=== PATIENT | female | born 1945 | race Caucasian/White ===

== ENCOUNTER 2016-05-07 21:31 | Emergency (ER) | payer MEDICARE, OTHER ==
[~2016-05-07] VITALS: Ht 149.9 cm; Wt 50.0 kg
[2016-05-07 21:42] VITALS: BP 118/76; PULSE 76; RESP 16; O2SAT 98
--- NOTE | 2016-05-07 23:39 | ED.REPORT ---
HPI-Hand Prob/Inj Date of Service May 07, 2016 ED Provider: Osmani Galdamez MD Pt is a 71 y.o. female who presents to the ED c/o left hand pain and swelling onset last night. Pt states that she was bit by a cat last night. She denies fever. Nursing Notes Stated Complaint: CAT BITE Chief Complaint: Skin Rash/Abscess Nursing Notes Reviewed: Yes Allergies: Uncoded Allergies: SULFA (Adverse Reaction, Intermediate, 05/07/16) headache General Time Seen by Provider: 23:34 Chief Complaint Hand pain left, Hand swelling left Hx Obtained From: Patient Arrived By: Walk-in Onset Occurred: Yesterday Symptom Duration: Since onset Caused by: Bite injury (Cat) Recent Healthcare: No recent doctor visit, No recent hospitalization Past Medical History Past Medical History None reported Past Surgical History None reported Ambulatory Status Independent Review of Systems Constitutional: Denies: Fever Musculoskeletal: Reports: Extremity pain (Left hand), Extremity swelling (Left hand) Complete sys rev & neg: except as marked. Physical Exam Initial Vital Signs Vital Signs (First) Date Time Temp Pulse Resp B/P Pulse Ox O2 Delivery O2 Flow Rate FiO2 05/07/16 21:42 36.1 76 16 118/76 98 Room Air Initial VS: Reviewed, Vital signs normal Head / Eyes: Atraumatic, Normocephalic Respiratory: Breath sounds normal, Clear to auscultation, No respiratory distress Cardiovascular: Regular rate & rhythm, Heart sounds normal, Intact distal pulses Extremities: Vascular intact, Neuro intact Skin: Warm, Dry, No cyanosis Neurologic: Alert, Oriented, Nonfocal Psychiatric: Mood/affect normal, Behavior normal, Normal thought content Wrist / Hand: Neurologic intact, Vascular intact Left Hand: Positive: Erythema present, Swelling present... Trauma / Burn / Environmental: Positive: Bite injury (dors), Puncture wound Bite injury to dorsum of left hand and thumb, with surrounding swelling and erythema. Lympanhgitic spread from left hand up to left elbow, no adenopathy. General/Constitutional: Awake, Alert, No acute distress, Well appearing, Well developed, Well hydrated, Well nourished, Not toxic appearing Re-Eval/Medical Decision Med Decision/Clinical Course 71-year-old female with cellulitis associated with a cat bite of the hand. She was treated with IV Unasyn and will be discharged on by mouth Augmentin with close follow-up. Source of Hx: Old records Re-Evaluation/Progress : Time of Eval: 00:56 Re-Evaluation/Progress Note: Pt rechecked. Discussed plan for discharge, pt understands and agrees with plan. Counseled Regarding: Diagnosis, Lab results, Need for follow-up, When/why to return to ED Discharge & Departure Primary Impression: Infected cat bite of hand Encounter type: initial encounter Laterality: left Qualified Code: S61.452A - Open bite of left hand, initial encounter Disposition: Home Discharge Condition All VS Reviewed: Yes Condition: Stable Patient Instructions: Animal Bite (ED), Cellulitis (ED) Additional Instructions: Compresses frequently. You received Unasyn IV antibiotic to be followed by Augmentin 875 mg orally twice daily, #20 dispensed. Tylenol and/or ibuprofen as needed for pain. Recheck in the next 1-2 days with your primary doctor. Call me at [phone] between the hours of 9 PM and 6 AM the next 2 nights if you have any problems. Referrals: Regulo Worley MD (PCP) Scribe Attestation Portions of this note were transcribed by Juantia Craven. I, Dr. Galdamez personally performed the history, physical exam and medical decision-making; I reviewed and confirmed the accuracy of the information in the transcribed note. Signed by: Pooja Worley, 05/07/16 and 0107. copies to: eRgulo Worley MD, Howard L MD May 07, 2016 23:39 JUANITA CRAVEN May 07, 2016 23:48
[2016-05-07] MEDS ORDERED: Ampicillin-Sulbactam Inj 3,000 MG in 0.9% Sodium Chloride 100 ML IV ONE (23:45)
[2016-05-08 01:16] VITALS: BP 112/72; PULSE 76; RESP 16; O2SAT 100
[2016-05-08] MEDS ORDERED: _Amoxicillin-Clavulanate 875-125 mg Tablet PO SCH (08:30)
== END 2016-05-08 01:18 | disposition home or self-care (01) ==
LOC: SED 21:31
DX: S61.452A Open bite of left hand, initial encounter (principal); W55.01XA Bitten by cat, initial encounter; Y92.9 Unspecified place or not applicable; Y93.89 Activity, other specified; Y99.8 Other external cause status; L03.114 Cellulitis of left upper limb; Z88.2 Allergy status to sulfonamides
CPT/HCPCS: 96365; 99284; J0295

== ENCOUNTER 2016-07-07 05:39 | Emergency (ER) | payer MEDICARE, OTHER ==
[~2016-07-07] VITALS: Ht 147.3 cm; Wt 50.0 kg
[2016-07-07 05:41] VITALS: BP 127/61; PULSE 107; RESP 16; O2SAT 100
[2016-07-07] MEDS ORDERED: NABU500T PO (05:51)
[2016-07-07] MEDS ORDERED: MULT1CAP33 PO (05:51)
[2016-07-07] MEDS ORDERED: CYAN1TAB42 PO (05:51)
--- NOTE | 2016-07-07 06:11 | ED.REPORT ---
HPI-General Illness Date of Service Jul 07, 2016 ED Provider: Luis Desir MD Patient is a 71 year old female with a history of pseudogout (last episode 10 yrs ago) who presents to the ED complaining of joint pain onset 4 days ago. Associated symptoms include R ankle, R knee, back pain (L side with radiation to buttocks), and R knee swelling (onset 3 days ago s/p a fall out of the car). Her pain started in her knee and moved to her ankle and back. She has also had some tingling in her R toes and fingers onset a few hours ago. She denies numbness, weakness, redness, fever, or any other symptoms. She has been seen at [facility] several times recently for similar complaints and has had X-rays performed. She has been taking Tylenol and Tramadol to help manage her pain. She was given Ambutol from [facility] Nursing Notes Stated Complaint: BACK PAIN Chief Complaint: Extremity Trauma Nursing Notes Reviewed: Yes ([employer], [employer] reconciled) Allergies: Coded Allergies: hydrocodone (Verified Allergy, Intermediate, dizziness, nausea, 07/07/16) Sulfa (Sulfonamide Antibiotics) (Verified Allergy, Unknown, 07/07/16) codeine (Verified Adverse Reaction, Severe, nausea, 07/07/16) oxycodone (Verified Adverse Reaction, Intermediate, dizziness, nausea, ) Scheduled Colchicine (Colchicine) 0.6 Mg Tablet 0.6 MG PO BID Cyanocobalamin/Folic Acid (Vitamin O73-Zcyag Acid Tablet) 1 Each Tablet 1 EACH PO DAILY Multivitamin (Multivitamins) 1 Each Capsule 1 EACH PO DAILY Nabumetone (Nabumetone) 500 Mg Tablet 500 MG PO BID Prednisone (PredniSONE) 20 Mg Tablet 60 MG PO DAILY Scheduled PRN Ibuprofen (Ibuprofen) 600 Mg Tablet 600 MG PO TID PRN PRN For Pain Ondansetron ODT (Ondansetron ODT) 8 Mg Tab.rapdis 8 MG PO Q4H PRN PRN For Nausea Tramadol (Tramadol) 50 Mg Tablet 50-100 MG PO Q6H PRN PRN For Pain General Time Seen by : 06:06 Chief Complaint Other (Joint pain) Hx Obtained From: Patient Arrived By: Walk-in Sudden in Onset?: Yes Onset Occurred: 4 days ago Symptom Duration: Since onset Recent Healthcare: Recent doctor visit Similar Sx Previous: Yes Past Medical History Past Medical History Pseudogout Past Surgical History None reported Smoking History Never Smoker Social History Alcohol Use: "Social" Other Social History: Good social support, Ambulatory Status Independent Review of Systems +tingling in R toes and fingers Full Review of Systems Constitutional: Denies: Chills, Fever Musculoskeletal: Reports: Back pain, Joint pain, Joint swelling (R knee) Neurologic: Denies: Numbness, Weakness Complete sys rev & neg: except as marked. Physical Exam Vital Signs Vital Signs Date Time Temp Pulse Resp B/P Pulse Ox O2 Delivery O2 Flow Rate FiO2 07/07/16 08:26 94 12 137/63 100 07/07/16 05:41 36.6 107 16 127/61 100 Room Air Initial VS: Reviewed, Vital signs abnormal (HR ) Head / Eyes: Atraumatic, Normocephalic Neck: Full range of motion Skin: Warm, Dry Neurologic: Alert, Oriented, Nonfocal Psychiatric: Mood/affect normal, Behavior normal, Normal thought content General/Constitutional: Awake, Alert, No acute distress, Well developed, Not toxic appearing Uncomfortable Respiratory / Chest: Atraumatic, Breath sounds NL, Breath sounds = bilat, No respiratory distress Cardiovascular: Heart rate NL, Regular rhythm, Heart sounds NL Abdomen: Soft, Non-tender Right Knee: Positive: Swelling present... Able to internally and externally roate hip. Decreased ROM in knee with effusion. Warm but not hot. Ligament testing limited due to discomfort. Ankle / Foot: No swelling, Neurologic intact, Vascular intact No redness or effusion in R ankle Interpretation & Diagnostics Lab Results Interpretation Result Diagram: 07/07/16 0640 07/07/16 0640 Test 07/07/16 06:40 07/07/16 07:29 White Blood Count 16.9th/mm3 (3.8-10.1) Red Blood Count 4.50mil/mm3 (3.90-5.20) Hemoglobin 13.6g/dL (12.0-15.6) Hematocrit 40.0% (35.0-46.0) Mean Corpuscular Volume 88.9fL (81-100) Mean Corpuscular Hemoglobin 30.2pg (27.0-35.0) Mean Corpuscular Hemoglobin Concent 34.0% (32.0-37.0) Red Cell Distribution Width 13.9% (12.3-15.4) Platelet Count 298bil/L (150-400) Neutrophils (%) (Auto) 78.9% (40-74) Lymphocytes (%) (Auto) 6.6% (14-46) Monocytes (%) (Auto) 13.9% (4-12) Eosinophils (%) (Auto) 0.1% (0-5) Basophils (%) (Auto) 0.1% (0-3) Erythrocyte Sedimentation Rate 25mm/hr (0-40) Hold Blue Top Tube Received (Received) Sodium Level 135mEq/L (134-144) Potassium Level 3.7mEq/L (3.5-5.2) Chloride Level 97mEq/L (97-108) Carbon Dioxide Level 19mmol/L (18-29) Blood Urea Nitrogen 13mg/dL (8-27) Creatinine 0.55mg/dL (0.57-1.00) Estimat Glomerular Filtration Rate 156mL/min (>59) Glucose Level 109mg/dL (60-99) Calcium Level 9.4mg/dL (8.5-10.1) Total Bilirubin 1.9mg/dL (0.0-1.2) Aspartate Amino Transf (AST/SGOT) 23U/L (0-50) Alanine Aminotransferase (ALT/SGPT) 17U/L (0-32) Alkaline Phosphatase 84U/L (25-165) Total Protein 7.3g/dL (6.4-8.4) Albumin 3.8g/dL (3.4-5.0) Hold Pritchett Top Tube Received (Received) Body Fluid Source Synovial fluid Body Fluid Color Yellow (Clear) Body Fluid Appearance Cloudy Body Fluid WBC 72291/mm3 Body Fluid RBC 2525/mm3 Body Fluid Polynuclear WBCs 90% Body Fluid Lymphocytes 5% Body Fluid Monocytes 5% Body Fluid Eosinophils 0% Body Fluid Basophils 0% Lab Results Interpretation: CBC positive leukocytosis CMP normal Synovial fluid analysis positive monosodium urate crystals consistent with gout, Gram stain negative, inflammatory markers, culture pending X-Ray Interpretation Xray Interpretation: IMPRESSION: No displaced fracture seen. If there is continued pain, followup exam or additional imaging such as MRI or CT could be performed for further assessment. Dictated by: Jimmy Covarrubias RRA Interpreted: Shannon Liang MD on 07/07/2016 at 8:47 Transcribed by: CALLUM on 07/07/2016 at 8:47 Study Performed: 3 views X-Ray Ordered: Ankle right Interpretation / Wet Read by: Interpret - Radiologist Procedures Arthrocentesis Right knee Time: 06:48 Aspiration Performed by: ED physician Consent / Setup / Site Prep: Informed consent provided, Consent from patient, Time-out performed, Hand hygiene observed Indication: Gout evaluation Skin Preparation Agent: Hibiclens - Chlorhexidine Local Anesthesia: Bupivacaine 0.5% Joint Aspirated: Knee right Amount Aspirated: 15 ml Fluid Appearance: Cloudy, Straw colored Post-Procedure / Complications: Antibiotic oint applied, Dressing placed, No complications, Condition improved, Tolerated procedure well, Patient stable Re-Eval/Medical Decision Med Decision/Clinical Course This is a 71-year-old female presents with several days of increasing right knee and right ankle pain, she reports minor trauma getting out of a vehicle but did not actual fall or suffer major trauma, reports being seen at urgent care in [place] where she had x-rays were negative for fracture by report, rales increasing discomfort. She is also notes some swelling in the right knee. She has had no fever. She is worried about pseudogout that she reports she has had pseudogout in the past. She denies alcohol ingestion. She has had no fever or redness. He has numerous drug sensitivities-vertically nausea and dizziness with pain medicine, and only tolerates tramadol. She has had increasing pain it has been uncontrolled and that is what brought her to the emergency department today. On exam she is afebrile and nontoxic. She does have a sizable right knee effusion with some warmth-although there is no overt cellulitis, she can flex and extend and does not have clinical findings of a maricruz septic joint. She also complains of pain in the right ankle joint, although I do not appreciate any warmth, effusion, cellulitis on clinical exam. Leg is neurovascularly intact. She talked about some back symptoms, but there is no clear consistent radicular component-and her exam strongly suggests that the majority of her symptoms are secondary to large effusion of the right knee. Recent IV placement received some titrated pain medicine with much improvement. Radiographs were negative. An arthrocentesis was performed under sterile conditions an clear yellow synovial fluid was obtained. Crystals are positive for monosodium urate which would indicate gout rather than pseudogout, and gram stains negative I do not find evidence of a maricruz infection and think this is isolated inflammatory process. Dose of bupivacaine was administered the knee with significant improvement. Patient received Toradol in department and will be discharged on ibuprofen. With the findings of crystals the patient is started on some steroids, low dose colchicine was employed due to the patient's sensitivity and attempt to avoid other pain medicines. I have written a prescription for some tramadol, as well as some when necessary ondansetron his nausea is a side effect of the pain medicines for her. The patient is improved, she is comfortable discharge to home. I did advise close follow-up with her primary care physician. Printed information regarding gout and provided. Source of Hx: Old records Time of Eval: 06:47 Patient Status: Condition improved Re-Evaluation/Progress Note: Rechecked patient. Her pain has improved. Performed R knee aspiration. Time of Eval: 09:04 Re-Evaluation/Progress Note: Patient is feeling much better. left and has not returned. Discussed lab results and plan for discharge. Patient understands and agrees with plan. All questions addressed at this time. Differential Diagnosis: Negative: Abdominal pain, Abrasion, Acute coronary syndrome, Allergies, Bronchitis, acute, COPD exacerbation, Diabetes mellitus, Drug dependence, G-tube repair/replacement, Neutropenia, Otitis media, Pneumonia , Seizure disorder Counseled Regarding: Diagnosis, Lab results, Need for follow-up, When/why to return to ED Discharge & Departure Departure Notes Gout R knee and R ankle Primary Impression: Gout Gout site: multiple sites Gout etiology: unspecified cause Chronicity: acute Qualified Code: M10.9 - Gout, unspecified Disposition: Home Discharge Condition All VS Reviewed: Yes Condition: Improved Additional Instructions: 1. The fluid analysis of your knee today revealed crystals of gout (not pseudogout). 2. Take ibuprofen 600 mg with food 3 times a day for the next 7 days. This medicine is an anti-inflammatory and will also help with the pain. 3. Take prednisone 60 mg (Three 20 mg tabs) once a day for 5 days 4. Take colchicine 0.6 mg twice a day for the next 7 days 5. IF needed for pain take tramadol 50mg 1-2 tabs up to three times a day (note : causes drowsiness) 6. IF needed for nausea take ondansetron 8mg - let dissolve under tongue - up to every 4 hours 7. Call to schedule a follow up appointment with your doctor in ~1 week 8. Return if new, worsening, or uncontrolled symptoms. Referrals: Regulo Worley MD (PCP) Scribe Attestation Portions of this note were transcribed by Reagan Rodas. I, Dr. Desir personally performed the history, physical exam and medical decision-making; I reviewed and confirmed the accuracy of the information in the transcribed note. Signed by: Reagan Rodas 07/07/16, 0927 copies to: Regulo Worley MD, Matthew F MD Jul 07, 2016 06:11 REAGAN RODAS Jul 07, 2016 06:18
[2016-07-07] MEDS ORDERED: Ondansetron 2 mg/mL 2 mL Inj IVPUSH ONE (06:20)
[2016-07-07] MEDS ORDERED: Bupivacaine 0.5% 50 mL Inj SUBQ ONE (06:25)
[2016-07-07] MEDS: HYDROmorphone 0.5 mg/0.5 mL iSecure Syringe IVPUSH PRN ×2 (06:42→08:37)
[2016-07-07] MEDS ORDERED: Bupivacaine-MPF 0.5% 30 mL Inj ONE (06:44)
[2016-07-07 07:00] LABS: BASOPHILS % (AUTO) 0.1 % (0-3); EOSINOPHILS % (AUTO) 0.1 % (0-5); MONOCYTES % (AUTO) 13.9 % (4-12); Mean Corpuscular Hemoglobin 30.2 pg (27.0-35.0); Mean Corpuscular Volume 88.9 fL (81-100); NEUTROPHILS % (AUTO) 78.9 % (40-74); Platelet Count 298 bil/L (150-400)
[2016-07-07] MEDS ORDERED: 0.9% Sodium Chloride 1,000 ML IV ONE (07:05)
[2016-07-07 08:06] LABS: ERYTHROCYTE SEDIMENTATION RATE 25 mm/hr (0-40)
[2016-07-07 08:13] LABS: BFWBC 43380 /mm3; MONOCYTES,BODY FLUID 5 %; OTHER CELLS,BODY FLUID 0
[2016-07-07 08:26] VITALS: BP 137/63; PULSE 94; RESP 12; O2SAT 100
--- NOTE | 2016-07-07 08:47 | DRSVH ---
PROCEDURE: X-RAY RIGHT ANKLE, MINIMUM THREE VIEWS ([id number]) INDICATIONS: pain TECHNIQUE: 3 views of the ankle were acquired. COMPARISON: None. FINDINGS: Bones: No fractures or dislocations. Ankle mortise is normally aligned. No suspicious bony lesions . Calcaneal spurring. Soft tissues: No tibiotalar joint effusion. Achilles tendon appears normal. IMPRESSION: No displaced fracture seen. If there is continued pain, followup exam or additional frances ging such as MRI or CT could be performed for further assessment. Dictated by: Jimmy Covarrubias RRA Interpreted: Shannon Liang MD on 07/07/2016 at 8:47 Transcribed by: CALLUM on 07/07/2016 at 8:47 Approved by: Shannon Liang MD, PhD on 07/07/2016 at 18:04
[2016-07-07] MEDS ORDERED: predniSONE 20 mg Tablet PO ONE (09:15)
[2016-07-07] MEDS ORDERED: COLC0.6T55 PO (09:23)
[2016-07-07] MEDS ORDERED: PRE20 PO (09:23)
[2016-07-07] MEDS ORDERED: TRAM50TA2 PO (09:23)
[2016-07-07] MEDS ORDERED: IBUP-1827 PO (09:23)
[2016-07-07] MEDS ORDERED: ONDA8TAB10 PO (09:23)
[2016-07-07 10:02] VITALS: BP 137/63; PULSE 94; RESP 12; O2SAT 100
== END 2016-07-07 10:00 | disposition home or self-care (01) ==
LOC: SED 05:39
DX: M10.9 Gout, unspecified (principal); M25.461 Effusion, right knee; M54.9 Dorsalgia, unspecified; R20.2 Paresthesia of skin; Z87.828 Personal history of other (healed) physical injury and trauma; Z88.2 Allergy status to sulfonamides; Z88.5 Allergy status to narcotic agent
CPT/HCPCS: 20610; 36415; 73610; 80053; 85025; 85651; 87070; 87205; 89051; 89060; 96361; 96374; 96375; 96376; 99285; J1170; J1885; J2405; J7030